=== PATIENT | male | born 1985 | race Hispanic/Latino ===

== ENCOUNTER 2024-08-23 21:11 | Emergency (ER) | payer OTHER ==
[~2024-08-23] VITALS: Ht 172.7 cm; Wt 190.5 kg
--- NOTE | 2024-08-23 21:44 | HMCIMG ---
PORTABLE CHEST RADIOGRAPH INDICATION: CHEST PAIN COMPARISON: None FINDINGS: Heart size is normal. The pulmonary vascularity and baldemar appear normal. No abnormal pulmonary parenchymal opacity or consolidation identified. No significant pleural effusion noted. No pneumothorax detected. IMPRESSION: No radiographic evidence for any acute cardiopulmonary process.
[2024-08-23 21:46] LABS: BASOPHILS # (AUTO) 0.09 K/uL (0.00-0.20); BASOPHILS % (AUTO) 0.7 % (0.0-5.0); EOSINOPHILS % (AUTO) 2.5 % (0.0-8.0); HEMATOCRIT 48.4 % (42-54); IMMATURE GRANULOCYTE ABSOLUTE 0.05 K/uL (0-1); LYMPHOCYTES # (AUTO) 2.3 K/uL (1.0-4.8); LYMPHOCYTES % (AUTO) 18.8 % (21.0-51.0); MEAN CORPUSCULAR HGB CONC 33.5 g/dL (32.0-36.0); MEAN CORPUSCULAR VOLUME 95.5 fL (79-99); MONOCYTES % (AUTO) 7.8 % (3.0-13.0); NEUTROPHILS # (AUTO) 8.5 K/uL (1.8-7.7); NEUTROPHILS % (AUTO) 69.8 % (40.0-77.0); PLATELET COUNT (AUTO) 245 K/uL (130-400); RED BLOOD CELL COUNT(AUTO) 5.07 MIL/uL (4.50-6.20); RED CELL DISTRIBUTION WIDTH 13.2 % (11.0-15.5); WHITE BLOOD COUNT (AUTO) 12.2 K/uL (4.8-10.8)
[2024-08-23 22:08] LABS: CREATININE 0.9 mg/dL (0.5-1.3)
[2024-08-23 22:09] LABS: B-TYPE NATRIURETIC PEPTIDE 6 pg/mL (0-100)
[2024-08-23 22:28] LABS: ABG BASE EXCESS 8.7 mmol/L (-2.0-3.0); ABG HCO3 34.5 mmol/L (21.0-28.0); ABG OXYGEN SATURATION 93.3 % (94.0-98.0); ABG PCO2 51 mmHg (35-48); ABG PH 7.446 (7.350-7.450); PO2, ARTERIAL BG 65.2 mmHg (83.0-108.0); VENT MODE, BG ROOMAIR (ROOM AIR)
[2024-08-23 22:55] VITALS: TEMP 98.4
--- NOTE | 2024-08-23 22:58 | ERN ---
General Chief Complaint: Multiple Complaints Stated Complaint: SOB, EDEMA, WOUND Time Seen by MD: 21:15 Source: patient History of Present Illness Initial Comments Patient is a 39-old morbidly obese male who presented to the emergency room with complaints of left lower extremity wound of 1 year duration. Patient states that the wound started as a small spot that progressively got bigger over a span of 1 year. With associated pain patient rates the pain as a 10/10. Patient states that he is taking a lot of antibiotics which he got from [place] for the wound however the the wound has failed to heal. Denies any fever, chills. Patient complains of shortness of breath, shortness of breath is worse with ambulation and when talking. Denies any chest pain or palpitations. Allergies: Coded Allergies: No Known Allergies (Unverified Allergy, Unknown, 08/23/24) Home Meds Active Scripts Clindamycin HCl (Clindamycin HCl) 300 Mg Capsule, 1 CAP PO TID for 10 Days, #30 CAP 0 Refills Prov:CINDY PINA MD 08/24/24 Past Medical History Past Medical History: Other Medical History Other: " WATER PILL" DENIES PMH Past Surgical History: None ROS Dictation Constitutional: No appetite loss, No fevers, chills , No night sweats, No weakness, fatigue Eye: No vision change, No redness, pain or discharge ENT: No hearing loss, ear pain or discharge, No nose bleeds, No sore throat, Neck: No swelling. pain or stiffness Respiratory: No cough, shortness of breath, wheezing Cardiovascular: No chest pain,, palpitations, dyspnea, No edema Gastrointestinal: No abdominal pain, No nausea, vomiting, No diarrhea, constipation Genitourinary: No painful urination, No blood in urine, No urinary incontinence, No frequency or urgency Musculoskeletal: No joint pain, muscle pain, swelling or stiffness Neurological: No numbness, tingling, No weakness, tremors or seizures Psychiatric: : No depression, No anxiety, No sleep disturbance, No Memory changes Integumentary: Left lower extremity wound A 13-point Review of Systems was assessed, all of which are negative except for HPI or as indicated above. Physical Exam Physical Exam Dictation General: Alert & Oriented, No acute distress. Morbidly obese EENT: No conjunctival redness or discharge noted Tympanic membranes are clear, Normal hearing, Oral mucosa is moist, No pharyngeal erythema, No nasal discharge, No oral lesions. Neck: Non-tender, No jugular vein distention, No lymphadenopathy, No thyromegaly, Supple. Respiratory: Lungs are clear to auscultation, , Breath sounds are equal, No chest wall tenderness, _. Cardiovascular: Normal rate, Normal rhythm, No murmur, Good pulses equal in all extremities, Normal peripheral perfusion, No edema. Gastrointestinal: Soft, Non-tender, Non-distended, Normal bowel sounds, No organomegaly, _. Musculoskeletal: Normal range of motion, Normal strength, No tenderness, No swelling, No deformity, Normal gait. Integumentary: Warm, Dry, [place], left lower extremity wound measuring about 10 cm x 10 cm with purulent drainage Neurologic: Alert, Oriented x4, Normal sensory, No focal defects Psychiatric: Cooperative, Appropriate mood & affect, Normal judgement, Non- suicidal. Results Laboratory and Microbiology Lab and Micro Result Laboratory Tests Test 08/23/24 21:38 08/23/24 22:09 08/23/24 22:15 08/23/24 22:27 White Blood Count 12.2 K/uL (4.8-10.8) H Red Blood Count 5.07 MIL/uL (4.50-6.20) Hemoglobin 16.2 g/dL (14.0-18.0) Hematocrit 48.4 % (42-54) Mean Corpuscular Volume 95.5 fL (79-99) Mean Corpuscular Hemoglobin 32.0 pg (27.0-33.0) Mean Corpuscular Hemoglobin Concent 33.5 g/dL (32.0-36.0) Red Cell Distribution Width 13.2 % (11.0-15.5) Platelet Count 245 K/uL (130-400) Mean Platelet Volume 10.8 fL (7.5-10.5) H Immature Granulocyte % (Auto) 0.4 % (0-1) Neutrophils (%) (Auto) 69.8 % (40.0-77.0) Lymphocytes (%) (Auto) 18.8 % (21.0-51.0) L Monocytes (%) (Auto) 7.8 % (3.0-13.0) Eosinophils (%) (Auto) 2.5 % (0.0-8.0) Basophils (%) (Auto) 0.7 % (0.0-5.0) Neutrophils # (Auto) 8.5 K/uL (1.8-7.7) H Lymphocytes # (Auto) 2.3 K/uL (1.0-4.8) Monocytes # (Auto) 1.0 K/uL (0.1-1.0) Eosinophils # (Auto) 0.30 K/uL (0.00-0.70) Basophils # (Auto) 0.09 K/uL (0.00-0.20) Absolute Immature Granulocyte (auto 0.05 K/uL (0-1) Nucleated Red Blood Cells 0.0 % (0.0-0.19) Sodium Level 137 mmol/L (136-145) Potassium Level 3.0 mmol/L (3.5-5.1) *L Chloride Level 94 mmol/L (101-111) L Carbon Dioxide Level 40 mmol/L (21-32) *H Blood Urea Nitrogen 20 mg/dL (7-18) H Creatinine 0.9 mg/dL (0.5-1.3) Glomerular Filtration Rate Calc 111 mL/min (>90) Random Glucose 185 mg/dL (70-105) H Total Calcium 9.1 mg/dL (8.5-10.1) Total Creatine Kinase 59 U/L (21-232) Troponin I High Sensitivity 9 ng/L (4-75) B-Type Natriuretic Peptide 6 pg/mL (0-100) Troponin I < 0.05 ng/mL (0.00-0.05) Lactic Acid Level 2.4 mmol/L (0.8-2.5) Blood Gas Specimen Type Arterial Arterial Blood pH 7.446 (7.350-7.450) Arterial Blood Partial Pressure CO2 51 mmHg (35-48) H Arterial Blood Partial Pressure O2 65.2 mmHg (83.0-108.0) L Arterial Blood HCO3 34.5 mmol/L (21.0-28.0) H Arterial Blood Oxygen Saturation 93.3 % (94.0-98.0) L Arterial Blood Base Excess 8.7 mmol/L (-2.0-3.0) H Blood Gas Temperature 37.0 CELSIUS (35.5-37.0) Blood Gas Vent Mode ROOMAIR (ROOM AIR) FiO2 21.0 % Blood Gas Specimen Comment RB DR.WARTH MDM Potential differential diagnoses include: * Morbid obesity * Sleep apnea * Hypokalemia * LLE Cellulitis Assessment: CBC was done in order to to rule any anemia, infections and to evaluate the overall health of the patient.CMP was ordered in order to assess. various electrolytes, kidney function, liver function ,protein levels and blood glucose levels and administer medications according to the patient's complaint. EKG to check the electrical rhythm of the heart, BNP in order to diagnose heart failure. ABG was done in order to diagnose and monitor metabolic disturbances rider ch as DKA. Order lactic acid level and blood cultures to rule out any sepsis. Ordered wound cultures as well. Administer 30 mg ketorolac IV with pain management I will re-evaluate the patient after treatment and diagnostic exams have returned to determine whether they require further testing, can be safely discharged home, or need admission for further treatment and evaluation. Given the social determinants of health affecting care, including literacy, access to medical care, prescription drug management, and [id number] drugs, I will ensure that treatment plans are tailored accordingly. Revaluation : Patient is alert and oriented. Patient's labs showed hypokalemia, replaced as per protocol, CO2 was elevated probably because of patient's body habitus and history of sleep apnea. All other labs appeared unremarkable. Disposition: Will discharge patient at this time with prescription of clindamycin PO and instructions to follow up with PCP for further evaluation and treatment. Instructed patient about the need to follow up with the wound care doctor for management of the chronic wound. Patient was also instructed to make use of his CPAP machine due to his history of sleep apnea . Verbalized understanding of instructions Attestation: Patient's case was discussed with the ER MD. Reviewed the documentation, medical decision making and treatment plan. Agrees with the find ings and plan of care. ED Course Orders Procedure Category Date Status Time Vital Signs Per CPOE 08/23/24 Transmitted Routine 21:13 B-Type Natriuretic LAB 08/23/24 Complete Peptide 21:13 Chest 1vw RAD 08/23/24 Resulted 21:13 12 Lead Ekg Tracing- EKG 08/23/24 Logged Technical 21:13 Oxygen By Nc/Pulse Ox CPOE 08/23/24 Transmitted 21:13 Maintain Iv CPOE 08/23/24 Transmitted 21:13 Iv Insertion CPOE 08/23/24 Transmitted 21:13 Cardiac Monitoring CPOE 08/23/24 Transmitted 21:13 Pulse Oximetry With CPOE 08/23/24 Transmitted Vs And Prn 21:13 Cbc With Differential LAB 08/23/24 Complete 21:13 Activity: Br W/Brp CPOE 08/23/24 Transmitted With Assist 21:13 Creatine Kinase, Total LAB 08/23/24 Complete 21:13 Troponin I High LAB 08/23/24 Complete Sensitivity 21:13 Urinalysis Profile LAB 08/23/24 Logged 21:13 Troponin Poc Order LAB 08/23/24 Complete Only 21:13 Bedside Troponin-I LAB.ER 08/23/24 Complete (Poc) 21:13 Basic Metabolic Panel LAB 08/23/24 Complete 21:13 Lactic Acid LAB 08/23/24 Complete 21:36 Blood Cult TONYA 08/23/24 In Process 21:36 Aerobic Culture TONYA 08/23/24 In Process 21:36 Anaerobic Culture TONYA 08/23/24 In Process 21:36 Arterial Blood Gas RT 08/23/24 Transmitted 21:48 Bedside Glucose CPOE 08/23/24 Transmitted Fingerstick 21:48 Initiate Po LEVON 08/23/24 Complete Hypokalemia Protoc 22:19 Potassium Chloride PHA 08/23/24 Complete 20meq/100ml ([place] 22:30 Notify Physician If CPOE 08/23/24 Transmitted There Is 22:19 Notify Md On The Next CPOE 08/23/24 Transmitted 22:19 Notify Md On The CPOE 08/23/24 Transmitted Next(Cont.) 22:19 Arterial Blood Gas RT 08/23/24 Transmitted 22:21 Us Venous Doppler US 08/23/24 Taken Unilateral 22:23 Arterial Blood Gas LAB 08/23/24 Complete 22:27 Ketorolac PHA 08/23/24 Complete Tromethamine 30mg/Ml 22:30 Ipratropium/Albuterol PHA 08/23/24 Complete Neb (Duoneb) 23:00 Potassium Chl 10% PHA 08/23/24 Complete Elixir 20meq (Kcl 10% 23:30 Potassium Chloride PHA 08/23/24 Complete 20meq Er (K-Dur/Klor- 23:30 Current Medications Medications (Trade) Dose Ordered Sig/Ronnie Route PRN Reason Start Time Stop Time Status Last Admin Dose Admin Albuterol (DUOneb) 1 UDVIAL ONCE ONCE IH 08/23/24 23:00 2/20/25 23:01 DC 08/23/24 23:26 Ketorolac Tromethamine (toRADol) 30 mg ONCE ONCE IVP 08/23/24 22:30 08/23/24 22:49 DC 08/23/24 23:06 Potassium Chloride 100 ml @ 50 mls/hr AD PRN IV POTASSIUM PROTOCOL 08/23/24 22:30 08/24/24 02:15 DC 08/23/24 23:06 Potassium Chloride (K-Dur/Klor-Con 20meq) 20 meq AD PRN PO POTASSIUM PROTOCOL 08/23/24 23:30 08/24/24 02:15 DC 08/23/24 23:15 Potassium Chloride (KCl 10% Elixir 20meq/15ml) 20 meq AD PRN PO POTASSIUM PROTOCOL 08/23/24 23:30 08/24/24 02:15 DC Vital Signs Date Time Temp Pulse Resp B/P (MAP) Pulse Ox O2 Delivery O2 Flow Rate FiO2 08/23/24 23:47 93 20 123/57 92 Room Air* 0 21 08/23/24 23:27 86 22 08/23/24 22:55 98.4 99 22 119/56 89 Room Air* 0 21 08/23/24 21:13 98.8 66 32 139/86 88 Room Air DX & DISP Disposition: Discharge Departure Impression: Primary Impression: Wound cellulitis Additional Impressions: Hypokalemia, Morbid obesity, Sleep apnea Condition: Stable Scripts Clindamycin HCl (Clindamycin HCl) 300 Mg Capsule 1 CAP PO TID for 10 Days, #30 CAP 0 Refills Prov: CINDY PINA MD 08/24/24 Additional Instructions: Discharge Instructions: CBC, CMP, ABGs, chest x-ray,BNP EKG and troponin were all done and results were unremarkable. Patient was instructed to follow up with the PCP for possible sleep study and use of a CPAP machine due to his history of sleep apnea. Patient verbalized understanding of instructions. *Follow up with your primary care physician in 2 - 3 days after discharge. *Continue all medications as prescribed. Do not discontinue or change dosages without consulting your PCP. *Gradually resume normal activities as tolerated. *Continue a balanced diet . Reduce salt intake to help manage BP. *Seek immediate medical attention if you experience chest pain, SOB or severe headache. *Smoking cessation is strongly advised. Resources for quitting smoking are available upon request. Referrals: SELF,REFERRAL (PCP) I performed a substantive portion of the visit. I have reviewed and personally made and approve the management plan that is documented in the notes by myself with LANDRY/resident. I acknowledged full responsibility for the patient's management plan. CINDY PINA MD Aug 23, 2024 22:58 JOSE SERRANO DO Aug 24, 2024 03:46
[2024-08-23] MEDS: ketOROlac 30MG VIAL (30MG/ML) IVP ONE (23:06)
[2024-08-23] MEDS: PoTASSium chloRIDE 20MEQ/100ML 100 ML IV PRN (23:06)
[2024-08-23] MEDS: PoTASSium chloRIDE 20MEQ ER 20 MEQ ERTAB PO PRN (23:15)
[2024-08-23] MEDS: IpraTROPium/alBUTERol SULFATE 3 ML SOLUTION IH ONE (23:26)
[2024-08-23 23:27] VITALS: PULSE 86; RESP 22
[2024-08-23] MEDS ORDERED: PoTASSium chl 10% ELIXIR 20MEQ 20 MEQ/15 ML UDCUP PO PRN (23:30)
[2024-08-23 23:47] VITALS: BP 123/57; PULSE 93; RESP 20; O2SAT 92
[2024-08-24] MEDS ORDERED: CLIN-141 PO (00:41)
--- NOTE | 2024-08-24 06:39 | EKG ---
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
--- NOTE | 2024-08-24 08:30 | HMCIMG ---
US VENOUS DOPPLER UNILATERAL REASON: LLE PAIN COMPARISON: None Technique: Left venous doppler ultrasound was performed with spectral analysis and color flow imaging technique. FINDINGS: There is a normal appearance of the common femoral, deep femoral, the profunda femoris and popliteal veins. Proximal calf veins appear normal as well. There is normal response to compression and augmentation. There is no evidence of deep venous thrombosis. IMPRESSION: Normal left lower extremity venous Doppler ultrasound.
== END 2024-08-24 00:23 | disposition home or self-care (01) ==
LOC: EEVIPCON 21:11 → EDH 21:11
DX: L03.116 Cellulitis of left lower limb (principal); M79.605 Pain in left leg; E87.6 Hypokalemia; G47.30 Sleep apnea, unspecified; E66.01 Morbid (severe) obesity due to excess calories; Z79.899 Other long term (current) drug therapy
CPT/HCPCS: 99285; 96365; 93971; 71045; 96375; 82550; 84484 ×2; 80048; 82803; 83880; 85025; 87040 ×2; 87076; 87186 ×5; 83605; 36415; 93005; 36600; 94640; 87070; 87086 ×5; J1885; J3480